=== PATIENT | male | born 1970 | race Two or more races ===

== ENCOUNTER 2024-08-31 07:36 | Emergency (ER) | payer SELFPAY ==
[~2024-08-31] VITALS: Ht 182.9 cm; Wt 93.0 kg
[2024-08-31 07:39] VITALS: O2SAT 100
[2024-08-31 09:16] LABS: BASOPHILS % 0.2 % (0.0-2.0); EOSINOPHILS % 0.2 % (0.0-5.0); HEMATOCRIT. 48.3 % (42.0-52.0); HEMOGLOBIN. 15.4 g/dL (14.0-18.0); LYMPHOCYTES % 8.5 % (20.0-50.0); MEAN CORPUSCULAR VOLUME 81.3 fL (80.0-94.0); MEAN PLATELET VOLUME 7.7 fl (7.4-10.4); MONOCYTES % 9.7 % (2.0-8.0); NEUTROPHILS % 81.4 % (40.0-76.0); PLATELET 216 x1000/uL (130-400); RED BLOOD CELL COUNT 5.94 mill/uL (4.7-6.1); RED CELL DISTRIBUTION WIDTH 15.4 % (11.6-14.6); WHITE BLOOD COUNT 9.7 x1000/uL (4.5-11.0)
[2024-08-31 09:20] LABS: CHLORIDE 107 mEq/L (98-107); POTASSIUM 4.3 mEq/L (3.5-5.1); SODIUM 141 mEq/L (136-145)
[2024-08-31 09:22] LABS: CALCIUM 9.7 mg/dL (8.7-10.4); CARBON DIOXIDE 29 mEq/L (21-32)
[2024-08-31] MEDS: HYDROCODONE/ACETAMINOPHEN 5/325MG TABLET PO ONE (09:23)
[2024-08-31] MEDS: KETOROLAC 30MG/ML VIAL IM ONE (09:23)
[2024-08-31 09:27] LABS: CREATININE 1.5 mg/dL (0.6-1.3); GLUCOSE 107 mg/dL (70-105); UREA NITROGEN BLOOD 18 mg/dL (9-23)
[2024-08-31 09:29] LABS: ALANINE AMINOTRANSFERASE 23 IU/L (10-49); ALBUMIN 4.4 g/dL (3.2-4.8); ASPARTATE AMINOTRANSFERASE 19 IU/L (<34); BILIRUBIN DIRECT 0.5 mg/dL (<=3.0)
[2024-08-31 09:30] LABS: BILIRUBIN TOTAL 1.6 mg/dL (0.1-1.0); PROTEIN TOTAL 7.6 g/dL (6.0-8.3)
[2024-08-31 09:42] LABS: CLARITY URINE CLEAR (CLEAR); COLOR URINE YELLOW (YELLOW); GLUCOSE URINE NEGATIVE (NEGATIVE); KETONES URINE TRACE (NEGATIVE); LEUKOCYTE ESTERASE URINE NEGATIVE (NEGATIVE); NITRITE URINE NEGATIVE (NEGATIVE); OCCULT BLOOD URINE NEGATIVE (NEGATIVE); PH URINE 7.5 (4.5-8.0); PROTEIN URINE 1+ (NEGATIVE); SPECIFIC GRAVITY URINE 1.024 (1.005-1.030)
[2024-08-31 10:31] LABS: WBC URINE 0-2 /hpf (0-2)
[2024-08-31 10:32] LABS: BACTERIA URINE NONE SEEN; RBC URINE 0-2 /hpf (0-2); SQUAMOUS EPITHELIAL CELL URINE NONE SEEN /lpf (RARE/1+); YEAST URINE NONE SEEN
[2024-08-31 10:33] LABS: MUCUS URINE TRACE /lpf (NONE/TRACE)
[2024-08-31] MEDS ORDERED: TAMS-11 MT (10:52)
[2024-08-31] MEDS ORDERED: IBUP-2029 MT (10:52)
[2024-08-31 11:25] VITALS: BP 147/100; PULSE 74; RESP 16; TEMP 36.66960; O2SAT 98
== END 2024-08-31 11:27 | disposition home or self-care (01) ==
LOC: ER 07:36
DX: N13.30 Unspecified hydronephrosis (principal); E11.9 Type 2 diabetes mellitus without complications; I10 Essential (primary) hypertension
CPT/HCPCS: 99285; 74176; 80076; 80048; 81003; 83690; 85025; 36415; 96372; J1885

== ENCOUNTER 2025-06-18 05:56 | Emergency (ER) | payer SELFPAY ==
[~2025-06-18] VITALS: Ht 185.4 cm; Wt 97.5 kg
[~2025-06-18 05:56] MED LIST: IBUP-2029 MT; TAMS-54 MT
[2025-06-18 06:04] VITALS: O2SAT 98
[2025-06-18] MEDS: MORPHINE SULFATE 4 MG/ML INJ (FOR IV/IM USE) IV ONE (06:58)
[2025-06-18 07:04] LABS: CLARITY URINE CLEAR (CLEAR); COLOR URINE DARK YELLOW (YELLOW); GLUCOSE URINE NEGATIVE (NEGATIVE); KETONES URINE 2+ (NEGATIVE); LEUKOCYTE ESTERASE URINE NEGATIVE (NEGATIVE); NITRITE URINE NEGATIVE (NEGATIVE); OCCULT BLOOD URINE TRACE (NEGATIVE); PH URINE 5.5 (4.5-8.0); PROTEIN URINE 2+ (NEGATIVE); SPECIFIC GRAVITY URINE 1.042 (1.005-1.030); UROBILINOGEN URINE 1.0 E.U./dL (0.2-1.0)
[2025-06-18 07:08] LABS: CREATININE 1.7 mg/dL (0.6-1.3); UREA NITROGEN BLOOD 24 mg/dL (9-23)
[2025-06-18 07:10] LABS: ASPARTATE AMINOTRANSFERASE 17 IU/L (<34); BILIRUBIN DIRECT 0.5 mg/dL (<=3.0); BILIRUBIN TOTAL 1.8 mg/dL (0.1-1.0)
[2025-06-18 07:11] LABS: PROTEIN TOTAL 7.3 g/dL (6.0-8.3)
[2025-06-18 07:12] LABS: BASOPHILS % 0.4 % (0.0-2.0); EOSINOPHILS % 0.3 % (0.0-5.0); HEMATOCRIT. 47.9 % (42.0-52.0); HEMOGLOBIN. 15.3 g/dL (14.0-18.0); LYMPHOCYTES % 7.4 % (20.0-50.0); MEAN PLATELET VOLUME 8.4 fl (7.4-10.4); MONOCYTES % 10.2 % (2.0-8.0); NEUTROPHILS % 81.7 % (40.0-76.0); PLATELET 223 x1000/uL (130-400); RED BLOOD CELL COUNT 6.20 mill/uL (4.7-6.1); RED CELL DISTRIBUTION WIDTH 14.8 % (11.6-14.6)
[2025-06-18 07:16] LABS: RBC URINE 0-2 /hpf (0-2); SQUAMOUS EPITHELIAL CELL URINE NONE SEEN /lpf (RARE/1+); WBC URINE 0-2 /hpf (0-2)
[2025-06-18 07:17] LABS: BACTERIA URINE NONE SEEN
[2025-06-18] MEDS ORDERED: T3 PO (09:09)
[2025-06-18 09:26] VITALS: BP 155/101; PULSE 78; RESP 20; TEMP 36.9; O2SAT 98
== END 2025-06-18 09:28 | disposition home or self-care (01) ==
LOC: ER 06:16
DX: N13.2 Hydronephrosis with renal and ureteral calculous obstruction (principal); Z98.84 Bariatric surgery status; Z79.899 Other long term (current) drug therapy
CPT/HCPCS: 99285; 96374; 76770; 80076; 80048; 81003; 83690; 85025; 36415; J2270